=== PATIENT | male | born 1960 | race Caucasian/White ===

== ENCOUNTER → 2016-05-25 | Outpatient (CLI) | payer OTHER | LOC: FIMAGING 09:44 | PROVIDERS: ATTEND Family Medicine | DX: M24.10 Other articular cartilage disorders, unspecified site (principal) ==

== ENCOUNTER → 2016-08-08 | Outpatient (CLI) | payer OTHER | LOC: CIMAGING 08:52 | PROVIDERS: ATTEND Family Medicine | DX: R10.9 Unspecified abdominal pain (principal) | CPT/HCPCS: 76700-PO ==

== ENCOUNTER → 2017-03-06 | Outpatient (CLI) | payer OTHER ==
[~2017-03-06] MED LIST: IOPAMIDOL (ISOVUE-300) 100 ML BTL ONE
== END ==
LOC: CIMAGING 14:24
PROVIDERS: ATTEND Family Medicine
DX: R10.9 Unspecified abdominal pain (principal); Z98.890 Other specified postprocedural states
CPT/HCPCS: 74177-PO; Q9967

== ENCOUNTER → 2017-04-02 | Outpatient (CLI) | payer OTHER | LOC: CIMAGING 12:24 | PROVIDERS: ATTEND Family Medicine | DX: S93.402A Sprain of unspecified ligament of left ankle, initial encounter (principal) | CPT/HCPCS: 73610-PO; 73630-PO ==

== ENCOUNTER → 2017-10-02 | Outpatient (CLI) | payer OTHER | LOC: CIMAGING 11:57 | PROVIDERS: ATTEND Family Medicine | DX: Z13.828 Encounter for screening for other musculoskeletal disorder (principal) | CPT/HCPCS: 73140-PO ==